=== PATIENT | male | born 1960 | race Caucasian/White ===

== ENCOUNTER 2022-11-06 11:43 | Inpatient (IN) | payer OTHER, SELFPAY ==
[2022-11-06] VITALS (12 sets, daily range): BP systolic 100–135; BP diastolic 64–94; PULSE 102–114; RESP 18–22; TEMP 36.8; O2SAT 96–99; BMI 27.9; BMI 27.7
--- NOTE | 2022-11-06 12:16 | CRLHL7_ITS ---
For Patients: As a result of the Century Cures Act, medical imaging exams and procedure reports are released immediately into your electronic medical record. You may view this report before your referring provider. If you have questions, please contact your health care provider. INDICATION: Lower abdominal pain TECHNIQUE: Axial images were obtained from the diaphragm to the pubic symphysis. Reformats were obtained in the coronal and sagittal plane. IV Contrast: 98 cc Isovue 370 Oral Contrast: None COMPARISON: None. FINDINGS: Lower chest: Unremarkable. Liver: Normal in contour with diffusely decreased density. Cysts within the right and left lobe of the liver. Gallbladder and bile ducts: Cholelithiasis without gallbladder wall thickening or pericholecystic inflammation. Spleen: Unremarkable. Normal in size without mass. Pancreas: Unremarkable. No mass or inflammation. Adrenal glands: Unremarkable. No nodules. Kidneys: Symmetric enhancement with a cyst the upper pole of left kidney. Subcentimeter hypodense lesions in the right kidney which are too small for characterization. Vasculature: Unremarkable. GI tract: The stomach is unremarkable. Colonic diverticulosis with wall thickening of the sigmoid colon, small adjacent free fluid as well as pneumoperitoneum within the sigmoid mesentery. Pelvis: Unremarkable. Bones: Old compression fracture T12. IMPRESSION: 1. Acute diverticulitis mid sigmoid colon with perforation. Small free fluid as well as pneumoperitoneum in the sigmoid mesentery without a drainable abscess. 2. Moderate hepatic steatosis. 3. Cholelithiasis without CT evidence of cholecystitis. Please note that all CT scans at this facility use dose modulation, iterative reconstruction, and/or weight-based dosing when appropriate to reduce radiation dose to as low as reasonably achievable. Dictated by Buddy León MD @ 11/06/2022 2:48:46 PM (Electronically Signed)
[2022-11-06] MEDS: KETOROLAC 30 MG/ML inj IVP (13:05)
[2022-11-06] MEDS: LORazepam 2 MG/ML inj 1 MG IVP (13:12)
[2022-11-06] MEDS: 0.9 % SODIUM CHLORIDE 1000 ml 1,000 ML IV (13:12)
[2022-11-06 13:19] LABS: Basophils Percent Auto 0.2 % (0.0-3.0); Eosinophils Percent Auto 0.2 % (0.0-7.0); Hematocrit 46.3 % (37.0-53.0); Immature Granulocytes Pct Auto 0.2 %; Lymphocytes Percent Auto 7.1 % (20-44); Mean Corpuscular HGB Conc 35 gm/dL (32-36); Mean Corpuscular Hemoglobin 29 pg (26-34); Mean Corpuscular Volume 83 fL (80-100); Monocytes Percent Auto 7.1 % (0.0-11.0); Neutrophils Percent Auto 85.2 % (42.0-72.0); Platelet Count* 197 K/uL (140-440); RDW Coefficient of Variation % 13.1 % (11.5-15.5); Red Blood Count 5.57 m/uL (4.30-5.90); White Blood Count* 13.04 K/uL (4.50-11.00)
--- NOTE | 2022-11-06 13:22 | ED_ITS ---
HPI - Abdominal Pain General Chief Complaint: Abdominal Pain Stated Complaint: lower abdominal pain Time Seen by Provider: 11/06/22 12:09 History of Present Illness HPI narrative: Pt is a 62 year old gentleman with a history of perirectal abscess who presents with a 12 hour history of lower abd pain. The pain seems to start in the RLQ but extends to the left. Pt has been having mucusy stool. No nausea, vomiting, fever or chills. Pt states that the pain is sharp but does not extend posteriorly. No change in his diet. No change in symptoms with urination or bowel movements. Pt takes 1000 mg of aspirin daily. No change recently. Pt otherwise has been in his usual state of health. Related Data Home Medications Medication Instructions Recorded Confirmed No Known Home Medications 11/06/22 11/06/22 Allergies Allergy/AdvReac Type Severity Reaction Status Date / Time No Known Drug Allergies Allergy Verified 11/06/22 11:53 Review of Systems Status of ROS Reports: 10 or more systems reviewed and unremarkable except as noted in History and below [facility] Medical History (Updated 11/06/22 @ 15:10 by Abebe Brandt MD) Perirectal abscess Pyloric stenosis Surgical History (Updated 11/06/22 @ 15:04 by Abebe Brandt MD) H/O bilateral inguinal hernia repair Social History Smoking Status: Never smoker Do you use any of these nicotine containing products: None How often do you have a drink containing alcohol: monthly or less How many standard drinks containing alcohol do you have on a typical day: 1 or 2 How often do you have six or more drinks on one occasion: Never AUDIT-C Alcohol total score: 1 Non-prescribed substance use: denies use Exam Narrative: Exam Narrative: EXAM GENERAL: Patient appears comfortable and well. EYES: No scleral icterus. ENT: Tympanic membranes and oropharynx normal. THYROID: no thyroid nodules or thyromegaly. LYMPH: No supraclavicular or cervical lymphadenopathy. SKIN: Visible skin seen during exam normal or with benign process only. EXT: No dependent lower extremity pedal edema. HEART: Regular rate and rhythm with no murmurs, rubs, or gallops. LUNGS: Clear to auscultation bilaterally with no crackles or wheezes. ABD: Soft, non tender, non distended. Minimal tenderness in the lower abd particularly on the right. No rebound. Bowel sounds hypoactive. PSYCH: Good eye contact, speech is not pressured. Const: Vital Signs, click to edit/add: Vital Signs - 24 hr 11/06/22 11:49 11/06/22 13:29 11/06/22 13:19 Temperature 98.2 F Pulse Rate 109 H Pulse Rate [Right Pulse Oximeter] 109 H Respiratory Rate 18 Blood Pressure 118/87 Blood Pressure [Ri ght Upper Arm] 130/84 Pulse Oximetry 97 97 97 Oxygen Delivery Me thod Room Air 11/06/22 13:20 11/06/22 13:30 11/06/22 13:31 Temperature Pulse Rate 110 H 105 H 106 H Pulse Rate [Right Pulse Oximeter] Respiratory Rate Blood Pressure 123/75 Blood Pressure [Ri ght Upper Arm] Pulse Oximetry 97 97 99 Oxygen Delivery Me thod Course Course Hospital Course: Pt seen and examined. CT abd and pelvis ordered. CBC, CMP, Amylase, Lactate, Blood Cultures ordered. Reevaluation(s) Reevaluation #1: CT shows diveritculitis with perforation with fluid and a small amount of free air. Case discussed with surgery. Pt started on Ertapenum. Time: 15:05 Vital Signs Vital signs: Initial Vital Signs Temperature 98.2 F 11/06/22 11:49 Temperature Source Temporal Artery Scan 11/06/22 11:49 Pulse Rate 109 H 11/06/22 11:49 Respiratory Rate 18 11/06/22 11:49 Blood Pressure 130/84 11/06/22 11:49 Blood Pressure Mean 99 11/06/22 11:49 Blood Pressure Position Sitting 11/06/22 11:49 Pulse Oximetry 97 11/06/22 11:49 Oxygen Delivery Method 11/06/22 11:49 Vital Signs Temperature 98.2 F 11/06/22 11:49 Pulse Rate 109 H 11/06/22 11:49 Respiratory Rate 18 11/06/22 11:49 Blood Pressure 130/84 11/06/22 11:49 Pulse Oximetry 97 11/06/22 11:49 Oxygen Delivery Method 11/06/22 11:49 Temperature 98.2 F 11/06/22 11:49 Pulse Rate 106 H 11/06/22 13:31 Respiratory Rate 18 11/06/22 11:49 Blood Pressure 123/75 11/06/22 13:31 Pulse Oximetry 99 11/06/22 13:31 Oxygen Delivery Method 11/06/22 11:49 MDM - Abdominal Pain MDM Narrative Medical decision making narrative: Pt presents with abd pain of 12 hours duration. Pt's WBC elevated at 13. Pt mildy tachycardic. Pt given IV fluids. CT scan shows diverticulosis with perforation with air and fluid present. Discussed case with Surgery. Given Ertapenum. Admit for further evaluation. Differential Diagnosis Differential diagnosis: Likely abdominal pain, acute appendicitis, calculus of kidney, constipation, diverticulitis, gastroenteritis, pancreatitis and small bowel obstruction Lab Data Labs: Lab Results 11/06/22 11/06/22 11/06/22 Range/Units 13:10 13:10 13:10 WBC 13.04 H (4.50-11.00) K/uL RBC 5.57 (4.30-5.90) m/uL Hgb 16.0 (13.5-17.5) gm/dL Hct 46.3 (37.0-53.0) % MCV 83 (80-100) fL MCH 29 (26-34) pg MCHC 35 (32-36) gm/dL RDW Coeff of Nichole 13.1 (11.5-15.5) % Plt Count 197 (140-440) K/uL Neut % (Auto) 85.2 H (42.0-72.0) % Lymph % (Auto) 7.1 L (20-44) % Bee % (Auto) 7.1 (0.0-11.0) % Eos % (Auto) 0.2 (0.0-7.0) % Baso % (Auto) 0.2 (0.0-3.0) % Neut # (Auto) 11.10 H (1.7-7.0) K/uL Lymph # (Auto) 0.90 (0.90-2.90) K/uL Bee # (Auto) 0.90 (0.00-0.90) K/UL Eos # (Auto) 0.00 (0.00-0.50) K/uL Baso # (Auto) 0.00 (0.00-0.30) K/uL Sodium 138 (135-149) mmol/L Potassium 4.1 (3.6-5.1) mmol/L Chloride 101 (96-114) mmol/L Carbon Dioxide 30 (20-32) mmol/L BUN 20 (7-30) mg/dL Creatinine 1.0 (0.5-1.5) mg/dL Estimated Creat Clear 82.62 Estimated GFR 86 ml/min Glucose 117 H (60-115) mg/dL Lactate 1.0 (0.5-1.9) mmol/L Calcium 9.0 (8.4-10.6) mg/dL Total Bilirubin 1.5 (0.1-1.5) mg/dL AST 44 H (12-35) U/L ALT 35 (4-50) U/L Alkaline Phosphatase 63 (40-150) U/L Total Protein 8.0 (6.0-8.3) g/dL Albumin 4.6 (3.3-5.0) g/dL Amylase 65 (18-89) U/L Urine Color (Yellow) Urine Appearance (Clear) Urine pH (5.0-8.5) Ur Specific [place] (1.000-1.030) Urine Protein (Negative) Urine Glucose (UA) (Negative) Urine Ketones (Negative) Urine Blood (Negative) Urine Nitrite (Negative) Urine Bilirubin (Negative) Urine Urobilinogen (0.2-1.0) Ur Leukocyte Esterase (Negative) Urine RBC (0-2) Urine WBC (0-5) Ur Squamous Epith Cells (None-Few) Urine Bacteria (None) Urine Mucus (None) 11/06/22 Range/Units 14:20 WBC (4.50-11.00) K/uL RBC (4.30-5.90) m/uL Hgb (13.5-17.5) gm/dL Hct (37.0-53.0) % MCV (80-100) fL MCH (26-34) pg MCHC (32-36) gm/dL RDW Coeff of Nichole (11.5-15.5) % Plt Count (140-440) K/uL Neut % (Auto) (42.0-72.0) % Lymph % (Auto) (20-44) % Bee % (Auto) (0.0-11.0) % Eos % (Auto) (0.0-7.0) % Baso % (Auto) (0.0-3.0) % Neut # (Auto) (1.7-7.0) K/uL Lymph # (Auto) (0.90-2.90) K/uL Bee # (Auto) (0.00-0.90) K/UL Eos # (Auto) (0.00-0.50) K/uL Baso # (Auto) (0.00-0.30) K/uL Sodium (135-149) mmol/L Potassium (3.6-5.1) mmol/L Chloride (96-114) mmol/L Carbon Dioxide (20-32) mmol/L BUN (7-30) mg/dL Creatinine (0.5-1.5) mg/dL Estimated Creat Clear Estimated GFR ml/min Glucose (60-115) mg/dL Lactate (0.5-1.9) mmol/L Calcium (8.4-10.6) mg/dL Total Bilirubin (0.1-1.5) mg/dL AST (12-35) U/L ALT (4-50) U/L Alkaline Phosphatase (40-150) U/L Total Protein (6.0-8.3) g/dL Albumin (3.3-5.0) g/dL Amylase (18-89) U/L Urine Color Dark yellow (Yellow) Urine Appearance Clear (Clear) Urine pH 6.0 (5.0-8.5) Ur Specific [place] 1.025 (1.000-1.030) Urine Protein Trace A (Negative) Urine Glucose (UA) Negative (Negative) Urine Ketones Negative (Negative) Urine Blood Negative (Negative) Urine Nitrite Negative (Negative) Urine Bilirubin Negative (Negative) Urine Urobilinogen 0.2 (0.2-1.0) Ur Leukocyte Esterase Negative (Negative) Urine RBC 0-2 (0-2) Urine WBC 0-2 (0-5) Ur Squamous Epith Cells Few (None-Few) Urine Bacteria Few A (None) Urine Mucus Moderate A (None) Discharge Plan Discharge Clinical Impression: Diverticulitis Patient Disposition: Admitted As Inpatient Condition: Stable Activity Level: Other Discharge Diet: Other Prescriptions: No Action No Known Home Medications Follow Up/Referrals: Dylon Jaimes MD [Primary Care Provider] -
[2022-11-06 13:37] LABS: Chloride* 101 mmol/L (96-114)
[2022-11-06 13:38] LABS: Albumin* 4.6 g/dL (3.3-5.0); Potassium* 4.1 mmol/L (3.6-5.1); Slide Review Reflex No; Sodium* 138 mmol/L (135-149)
[2022-11-06 13:40] LABS: Amylase* 65 U/L (18-89)
[2022-11-06 13:41] LABS: Alanine Aminotransferase* 35 U/L (4-50); Alkaline Phosphatase* 63 U/L (40-150); Aspartate Amino Transferase* 44 U/L (12-35); Bilirubin Total* 1.5 mg/dL (0.1-1.5); Blood Urea Nitrogen* 20 mg/dL (7-30); Carbon Dioxide* 30 mmol/L (20-32); Est. Creatinine Clearance* 82.62; Estimated Glomerular Filt Rate 86 ml/min; Glucose* 117 mg/dL (60-115)
[2022-11-06 14:37] LABS: Appearance Urine Clear (Clear); Bilirubin Urine Negative (Negative); Blood Urine Negative (Negative); Color Urine Dark yellow (Yellow); Glucose Urine Negative (Negative); Ketones Urine Negative (Negative); Leukocyte Esterase Urine Negative (Negative); Nitrite Urine Negative (Negative); Protein Urine Trace (Negative); Specific Gravity Urine 1.025 (1.000-1.030); Urobilinogen Urine 0.2 (0.2-1.0)
[2022-11-06 14:45] LABS: RBC Urine 0-2 (0-2); WBC Urine 0-2 (0-5)
[2022-11-06 14:46] LABS: Bacteria Urine Few; Squamous Epithelial Cell Urine Few (None-Few)
[2022-11-06 14:47] LABS: Mucus Urine Moderate
[2022-11-06] MEDS: ERTAPENEM 1 GM in 0.9 % SODIUM CHLORIDE Mini-bag 100 ML IVPB (15:12)
[2022-11-06 16:01] LABS: Lactate* 1.5 mmol/L (0.5-1.9)
[2022-11-06 16:08] LABS: SARS PCR* Negative SARS-CoV-2 (Negative)
[2022-11-06] MEDS: SODIUM CHLORIDE 0.9 % (FLUSH) 10 ML SYRINGE 5 ML IVF (17:16)
[2022-11-06] MEDS: 0.9 % SODIUM CHLORIDE 1000 ml 1,000 ML 125 ML IV (17:16)
[2022-11-06] MEDS: LACTATED RINGERS 1000 ML 1,000 ML 500 ML IV (17:16)
--- NOTE | 2022-11-06 17:20 | P.IMHP_ITS ---
Hospitalist- H&P: HPI History of Present Illness Time Seen by Provider: 15:00 Date Seen: 11/06/22 Chief complaint: lower abdominal pain Narrative: Duarte Carrillo is a 62 year old man who presents with a 24 hour history of suprapubic abdominal pain that is worsening. He was in his usual state of health up until about 1:00 PM yesterday. He ate a regular lunch. Subsequently developed suprapubic abdominal pain radiating to the left. Did not get better. Later in the evening developed low-grade fever and chills. [place] like he had to have a bowel movement but only eliminated gas and mucus. No blood of any kind. Denies nausea vomiting. Problem not improvi ng today and thus he comes into the emergency department further assessment. Review of Systems Status of ROS: Reports: 10 or more systems reviewed and unremarkable except as noted in History and below Narrative: Maximum temperature at home 99? F. He has had chills. Has not had an infectious illness for upwards of over a year, when he had about of his chronic prostatitis for which he was on a course of doxycycline. No recent exposure to COVID-19, influenza, RSV. Has not had any diarrhea. No recent travel, or trauma. No chest heaviness, pressure, tightness, or pain. Denies dyspnea at rest, paroxysmal nocturnal dyspnea, orthopnea. Denies syncope or near-syncope. No palpitations or chest fluttering. No edema. Has chronic dyspepsia for which he takes [id number] famotidine. Again has had no nausea vomiting. Last meal was around noon yesterday. Last drink chicken broth this morning. Denies myalgias, arthralgias, weight gain, weight loss. Has never been told he has diverticulosis in the past. He tells me that for the last 2 years his bowel habits have changed. Typically every morning he will have 3 bowel movements, 1st at home, and then at work. Sometimes he struggles to get to work and time before he has a 2nd bowel movement. . Lives with his . 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 Designates his , Annette, as his power of mergers and acquisitions attorney for health should that be required. Annette's cell phone number is [phone]. Patient requests full resuscitation in the event of cardiopulmonary demise. [facility] Medical History (Updated 11/06/22 @ 17:35 by Jose Bedolla MD) Anxiety Aspirin long-term use Benign prostatic hyperplasia with lower urinary tract symptoms Chronic headache disorder Chronic prostatitis/chronic pelvic pain syndrome Dyspepsia Perirectal abscess Pyloric stenosis Surgical History H/O bilateral inguinal hernia repair H/O vasectomy Family History Father Prostate cancer High blood pressure Uncle Diabetes Mother Stroke Social History Highest level of school completed/degree received: high school graduate Smoking Status: Never smoker Do you use any of these nicotine containing products: None How often do you have a drink containing alcohol: monthly or less How many standard drinks containing alcohol do you have on a typical day: 1 or 2 How often do you have six or more drinks on one occasion: Never AUDIT-C Alcohol total score: 1 Non-prescribed substance use: denies use Caffeine: Yes (1 Coke Daily.) service: No Meds Home Medications and Allergies Home Medications Medication Instructions Recorded Confirmed Type aspirin-caffeine 500 mg-32.5 mg 2 tab PO DAILY 11/06/22 11/06/22 History tablet (Back and Body Pain Reliever) cholecalciferol (vitamin D3) .ROUTE 11/06/22 History cyclobenzaprine 10 mg tablet 10 mg PO TID PRN 11/06/22 11/06/22 History doxycycline hyclate 100 mg tablet 100 mg PO BID PRN 11/06/22 11/06/22 History famotidine 20 mg tablet 20 mg PO DAILY 11/06/22 11/06/22 History (Zantac-360 (famotidine)) hydroxyzine pamoate 25 mg capsule 25 mg PO Q6H PRN 11/06/22 11/06/22 History levofloxacin 500 mg tablet 500 mg PO DAILY PRN 11/06/22 11/06/22 History lorazepam 1 mg tablet (Ativan) 1 mg PO DAILY PRN anxiety 11/06/22 11/06/22 History multivitamin (Daily Multi-Vitamin 1 tab PO DAILY 11/06/22 11/06/22 History tablet) tadalafil 20 mg tablet 20 mg PO DIRECTED PRN 11/06/22 11/06/22 History Allergies Allergy/AdvReac Type Severity Reaction Status Date / Time No Known Drug Allergies Allergy Verified 11/06/22 11:53 Exam Narrative: Exam Narrative: Appears uncomfortable. Nevertheless his articulate cooperative and friendly. Alert, oriented to self, place, time, situation. Anxious disposition. Mood and affect are congruent. Hearing and vision are grossly normal. Dry buccal mucosa. Dentition in good repair. Normal oral aperture. Supple neck. Midline trachea. Normal thyroid. No JVD, hepatojugular reflux, or carotid bruits. No lymphadenopathy in the pre or postauricular chains, anterior-posterior cervical chains, supra or infraclavicular fossa, submandibular or submental fossa, or axilla bilaterally. Lungs are clear to auscultation without wheezing, rhonchi, or rales. Heart tones with regular rhythm, normal S1-S2, tachycardic at around 105, no murmur, gallop, or rub. Abdomen with active bowel sounds. Subjective discomfort to palpation particularly in the suprapubic area but on the left and right as well. No peritoneal signs at this time. No CVA tenderness. Independent transfer, station, and gait. No tremor, asterixis, or ataxia. Skin is warm, dry, intact. No cyanosis, petechiae, or rashes. Const: Vital Signs, click to edit/add: Vital Signs - 24 hr 11/06/22 11:49 11/06/22 13:29 11/06/22 13:19 Temperature 98.2 F Pulse Rate 109 H Pulse Rate [Right Pulse Oximeter] 109 H Respiratory Rate 18 Blood Pressure 118/87 Blood Pressure [Ri ght Arm] Blood Pressure [Ri ght Upper Arm] 130/84 Pulse Oximetry 97 97 97 Oxygen Delivery Me thod Room Air 11/06/22 13:20 11/06/22 13:30 11/06/22 13:31 Temperature Pulse Rate 110 H 105 H 106 H Pulse Rate [Right Pulse Oximeter] Respiratory Rate Blood Pressure 123/75 Blood Pressure [Ri ght Arm] Blood Pressure [Ri ght Upper Arm] Pulse Oximetry 97 97 99 Oxygen Delivery Me thod 11/06/22 13:32 11/06/22 15:01 11/06/22 15:02 Temperature Pulse Rate 105 H 109 H Pulse Rate [Right Pulse Oximeter] Respiratory Rate Blood Pressure 135/94 H Blood Pressure [Ri ght Arm] Blood Pressure [Ri ght Upper Arm] Pulse Oximetry 96 98 Oxygen Delivery Me thod 11/06/22 16:55 Temperature 98.2 F Pulse Rate Pulse Rate [Right Pulse Oximeter] 102 H Respiratory Rate 22 Blood Pressure Blood Pressure [Ri ght Arm] 100/64 Blood Pressure [Ri ght Upper Arm] Pulse Oximetry 98 Oxygen Delivery Me thod Room Air Documenting provider has reviewed patient's vital signs: yes Hospitalist - H&P: Result Labs Labs: Short CBC 11/06/22 Range/Units 13:10 WBC 13.04 H (4.50-11.00) K/uL Hgb 16.0 (13.5-17.5) gm/dL Hct 46.3 (37.0-53.0) % Plt Count 197 (140-440) K/uL BMP 11/06/22 13:10 Sodium 138 Potassium 4.1 Chloride 101 Carbon Dioxide 30 BUN 20 Creatinine 1.0 Glucose 117 H Calcium 9.0 Liver Function 11/06/22 Range/Units 13:10 Total Bilirubin 1.5 (0.1-1.5) mg/dL AST 44 H (12-35) U/L ALT 35 (4-50) U/L Alkaline Phosphatase 63 (40-150) U/L Albumin 4.6 (3.3-5.0) g/dL Urine 11/06/22 Range/Units 14:20 Urine Color Dark yellow (Yellow) Urine Appearance Clear (Clear) Urine pH 6.0 (5.0-8.5) Ur Specific [place] 1.025 (1.000-1.030) Urine Protein Trace A (Negative) Urine Glucose (UA) Negative (Negative) Imaging CT scan - abdomen: Attestation: I have reviewed the pertinent imaging results. Radiologist's impression: Acute diverticulitis of the mid sigmoid with perforation. Small free fluid as well as pneumoperitoneum in the sigmoid mesentery without any drainable abscess. Also noted is moderate hepatic steatosis. Lastly patient has cholelithiasis without CT evidence of cholecystitis. Assessment and Plan Assessment and plan (1) Perforation of sigmoid colon due to diverticulitis: Problem comment: Micro perforation and pneumoperitoneum 11/06/2022. Ertapenem 1 g IV daily started on 11/06/2022. Status: Acute (2) Dehydration: Status: Acute (3) Tachycardia: Status: Acute (4) Aspirin long-term use: Problem comment: 1000 mg daily for chronic headache Status: Acute (5) Dyspepsia: Problem comment: Famotidine 20 mg once daily Status: Acute Plan 1. Reviewed impression with patient and . 2. Answered their questions. 3. Consulted with General surgery, Dr. White. Will ask her to follow with us in the event patient requires emergent surgery. 4. NPO, IV fluids, analgesics, antiemetics, ertapenem 1 g IV once daily. 5. Usual duration of antibiotic therapy is 10-14 days of IV plus oral ant ibiotics. Given that patient has micro per may need to consider IV antibiotics for duration of antibiotic therapy. 6. Will consult with Nutrition to review with patient low residue diet which we hope to initiate in the next few days depending on how he is doing. 7. Will curtail the use of aspirin therapy while in hospital. 8. Continue with other supportive medications. 9. Venous thromboembolism prophylaxis including ambulation as tolerated. 10. Patient and agreeable to above stated plans and recommendations.
--- NOTE | 2022-11-06 17:35 | PC.NURSE ---
PATIENT TO FLOOR FROM ED AROUND 1645, ALERT AND ORIENTED, APPEARS VERY ANXIOUS, PATIENT IS RESTLESS IN BED, RAMBLING SPEECH AND REPETITIVE QUESTIONS, BOWEL SOUNDS HYPOACTIVE, EDUCATED ON NPO DIET AND PATIENT VERBALIZED UNDERSTANDING, STATED ABDOMEN PAIN IS TOLERABLE AT THE MOMENT, WOULD NOT RATE PAIN ON NUMBER SCALE, PATIENT WANTING TO FILL OUT BELONGING FORM AND INFORMATION AUTHORIZATION FROM.
[2022-11-06] MEDS: ACETAMINOPHEN 325 MG TABLET 650 MG PO (22:25)
[2022-11-06] MEDS: diphenhydrAMINE 25 MG CAPSULE PO (22:26)
[2022-11-06] MEDS: MELATONIN 3 MG TABLET 9 MG PO (22:26)
[2022-11-07] MEDS: 0.9 % SODIUM CHLORIDE 1000 ml 1,000 ML 125 ML IV ×3 (02:08→20:23)
[2022-11-07 03:00] VITALS: BP 108/67; PULSE 89; TEMP 36.6
[2022-11-07 04:25] VITALS: BP 108/67; PULSE 89; RESP 22; TEMP 36.6; O2SAT 98
[2022-11-07 06:53] LABS: Lactate* 0.8 mmol/L (0.5-1.9)
[2022-11-07 07:01] LABS: Basophils Absolute Auto 0.03 K/uL (0.00-0.30); Basophils Percent Auto 0.3 % (0.0-3.0); Eosinophils Absolute Auto 0.03 K/uL (0.00-0.50); Eosinophils Percent Auto 0.3 % (0.0-7.0); Hematocrit 39.1 % (37.0-53.0); Hemoglobin* 13.2 gm/dL (13.5-17.5); Immature Granulocytes Abs Auto 0.01 K/uL (0.00-0.30); Immature Granulocytes Pct Auto 0.1 %; Lymphocytes Percent Auto 9.3 % (20-44); Mean Corpuscular HGB Conc 34 gm/dL (32-36); Mean Corpuscular Hemoglobin 28 pg (26-34); Mean Corpuscular Volume 84 fL (80-100); Monocytes Percent Auto 7.4 % (0.0-11.0); Neutrophils Percent Auto 82.6 % (42.0-72.0); Platelet Count* 169 K/uL (140-440); RDW Coefficient of Variation % 12.9 % (11.5-15.5); Red Blood Count 4.67 m/uL (4.30-5.90); White Blood Count* 9.67 K/uL (4.50-11.00)
[2022-11-07 07:12] LABS: Slide Review Reflex No
[2022-11-07 07:24] LABS: Chloride* 106 mmol/L (96-114); Sodium* 136 mmol/L (135-149)
[2022-11-07 07:26] LABS: Creatinine* 0.9 mg/dL (0.5-1.5); Est. Creatinine Clearance* 82.62; Estimated Glomerular Filt Rate 97 ml/min; Lipase* 62 U/L (23-300)
[2022-11-07 07:27] LABS: Blood Urea Nitrogen* 21 mg/dL (7-30); Carbon Dioxide* 25 mmol/L (20-32); Glucose* 111 mg/dL (60-115); Phosphorus* 2.7 mg/dL (2.5-4.5)
[2022-11-07 07:28] LABS: Magnesium* 1.9 mg/dL (1.5-2.6)
[2022-11-07 07:30] VITALS: BP 107/72; PULSE 93; RESP 18; TEMP 36.8; O2SAT 97
--- NOTE | 2022-11-07 07:42 | PC.NURSE ---
VSS on RA. Patient is alert and oriented x 3, able to make needs known to staff using call light. IV fluid running @ 125ml/hr and tolerating well. Independent with transfers, continent of bowel and bladder. Pt appears stable, call light with in reach.
[2022-11-07 07:44] LABS: C Reactive Protein* 18.5 mg/dL (0.5-1.0); Troponin I* < 0.01 ng/mL (0.01-0.04)
--- NOTE | 2022-11-07 08:15 | PM.GSCN ---
History of Present Illness Consult details Date Seen: 11/07/22 Consult date: 11/07/22 Narrative: 62-year-old male was admitted to the hospital with perforated diverticulitis and I was asked by Dr. Madsen to see him in consultation. Patient states that on Thursday after lunch she developed crampy pain in bilateral lower quadrants. The pain was described as coming ?in waves? every 20 minutes. The pain was getting severe and he did not go to work on . He was passing gas intermittently and denied nausea or vomiting. The pain was getting significantly worse and yesterday he presented to the emergency room. Patient denies any prior episodes of pain. He had a colonoscopy 4 years ago with a 5 year repeat. In the emergency room he was found to have an elevated WBC of 13. An abdominal CT was obtained that showed sigmoid diverticulitis in the mid sigmoid colon with extraluminal air pocket adjacent to the inflamed sigmoid colon. There was no abdominal free air and the free air noted adjacent to the sigmoid colon appeared to be contained. Patient was admitted for IV hydration and IV antibiotics. He states that his abdominal pain is significantly better compared to yesterday. Review of Systems Narrative: General: no fevers HENT: no problems swallowing CV: no shortness of breath Resp: no cough GI: See above Skin: no new rashes Musculoskeletal: no back pain Neuro: no muscle weakness [facility] Medical History (Updated 11/06/22 @ 17:35 by Jose Bedolla MD) Anxiety Aspirin long-term use Benign prostatic hyperplasia with lower urinary tract symptoms Chronic headache disorder Chronic prostatitis/chronic pelvic pain syndrome Dyspepsia Perirectal abscess Pyloric stenosis Surgical History H/O bilateral inguinal hernia repair H/O vasectomy Family History Father Prostate cancer High blood pressure Uncle Diabetes Mother Stroke Social History Highest level of school completed/degree received: high school graduate Smoking Status: Never smoker Do you use any of these nicotine containing products: None How often do you have a drink containing alcohol: monthly or less How many standard drinks containing alcohol do you have on a typical day: 1 or 2 How often do you have six or more drinks on one occasion: Never AUDIT-C Alcohol total score: 1 Non-prescribed substance use: denies use Caffeine: Yes (1 Coke Daily.) service: No Meds Home Medications and Allergies Home Medications Medication Instructions Recorded Confirmed Type aspirin-caffeine 500 mg-32.5 mg 2 tab PO DAILY 11/06/22 11/06/22 History tablet (Back and Body Pain Reliever) cholecalciferol (vitamin D3) .ROUTE 11/06/22 History cyclobenzaprine 10 mg tablet 10 mg PO TID PRN 11/06/22 11/06/22 History doxycycline hyclate 100 mg tablet 100 mg PO BID PRN 11/06/22 11/06/22 History famotidine 20 mg tablet 20 mg PO DAILY 11/06/22 11/06/22 History (Zantac-360 (famotidine)) hydroxyzine pamoate 25 mg capsule 25 mg PO Q6H PRN 11/06/22 11/06/22 History levofloxacin 500 mg tablet 500 mg PO DAILY PRN 11/06/22 11/06/22 History lorazepam 1 mg tablet (Ativan) 1 mg PO DAILY PRN anxiety 11/06/22 11/06/22 History multivitamin (Daily Multi-Vitamin 1 tab PO DAILY 11/06/22 11/06/22 History tablet) tadalafil 20 mg tablet 20 mg PO DIRECTED PRN 11/06/22 11/06/22 History Allergies Allergy/AdvReac Type Severity Reaction Status Date / Time No Known Drug Allergies Allergy Verified 11/06/22 11:53 Exam Narrative: Exam Narrative: General appearance: Alert, cooperative, and in no distress Pulmonary: Chest symmetric, lungs clear bilaterally Cardiovascular Heart: Regular rate and rhythm, S1, S2, no murmurs/rubs/gallops Gastrointestinal Abdominal: soft, not distended, tender to palpation in bilateral lower quadrants and suprapubically with minimal rebound tenderness suprapubically but no other peritoneal signs. Not tender to palpation in epigastrium. Skin: Normal skin color, texture, and turgor. No rashes or lesions. Psychiatric: Alert, cooperative, normal affect. Const: Vital Signs, click to edit/add: Vital Signs - 24 hr 11/06/22 11:49 11/06/22 13:29 11/06/22 13:19 Temperature 98.2 F Pulse Rate 109 H Pulse Rate [Right Pulse Oximeter] 109 H Respiratory Rate 18 Blood Pressure 118/87 Blood Pressure [Ri ght Arm] Blood Pressure [Ri ght Upper Arm] 130/84 Pulse Oximetry 97 97 97 Oxygen Delivery Me thod Room Air 11/06/22 13:20 11/06/22 13:30 11/06/22 13:31 Temperature Pulse Rate 110 H 105 H 106 H Pulse Rate [Right Pulse Oximeter] Respiratory Rate Blood Pressure 123/75 Blood Pressure [Ri ght Arm] Blood Pressure [Ri ght Upper Arm] Pulse Oximetry 97 97 99 Oxygen Delivery Me thod 11/06/22 13:32 11/06/22 15:01 11/06/22 15:02 Temperature Pulse Rate 105 H 109 H Pulse Rate [Right Pulse Oximeter] Respiratory Rate Blood Pressure 135/94 H Blood Pressure [Ri ght Arm] Blood Pressure [Ri ght Upper Arm] Pulse Oximetry 96 98 Oxygen Delivery Me thod 11/06/22 16:55 11/06/22 20:54 11/06/22 23:00 Temperature 98.2 F 98.2 F Pulse Rate Pulse Rate [Right Pulse Oximeter] 102 H 114 H 114 H Respiratory Rate 22 22 22 Blood Pressure Blood Pressure [Ri ght Arm] 100/64 114/69 Blood Pressure [Ri ght Upper Arm] Pulse Oximetry 98 98 [facility] 11/07/22 03:00 11/07/22 04:25 Temperature 97.9 F 97.9 F Pulse Rate Pulse Rate [Right Pulse Oximeter] 89 89 Respiratory Rate 22 Blood Pressure Blood Pressure [Ri ght Arm] 108/67 108/67 Blood Pressure [Ri ght Upper Arm] Pulse Oximetry 98 Oxygen Delivery Il thod Room Air Results Labs Labs: Abnormal lab results 11/06/22 11/06/22 11/06/22 Range/Units 13:10 13:10 14:20 WBC 13.04 H (4.50-11.00) K/uL Hgb (13.5-17.5) gm/dL Neut % (Auto) 85.2 H (42.0-72.0) % Lymph % (Auto) 7.1 L (20-44) % Neut # (Auto) 11.10 H (1.7-7.0) K/uL Glucose 117 H (60-115) mg/dL Calcium (8.4-10.6) mg/dL AST 44 H (12-35) U/L Troponin I (0.01-0.04) ng/mL C-Reactive Protein (0.5-1.0) mg/dL Urine Protein Trace A (Negative) Urine Bacteria Few A (None) Urine Mucus Moderate A (None) 11/07/22 11/07/22 Range/Units 06:11 06:11 WBC (4.50-11.00) K/uL Hgb 13.2 L (13.5-17.5) gm/dL Neut % (Auto) 82.6 H (42.0-72.0) % Lymph % (Auto) 9.3 L (20-44) % Neut # (Auto) 8.00 H (1.7-7.0) K/uL Glucose (60-115) mg/dL Calcium 8.0 L (8.4-10.6) mg/dL AST (12-35) U/L Troponin I < 0.01 L (0.01-0.04) ng/mL C-Reactive Protein 18.5 H (0.5-1.0) mg/dL Urine Protein (Negative) Urine Bacteria (None) Urine Mucus (None) Diabetes panel 11/06/22 11/07/22 Range/Units 13:10 06:11 Sodium 138 136 (135-149) mmol/L Potassium 4.1 4.0 (3.6-5.1) mmol/L Chloride 101 106 (96-114) mmol/L Carbon Dioxide 30 25 (20-32) mmol/L BUN 20 21 (7-30) mg/dL Creatinine 1.0 0.9 (0.5-1.5) mg/dL Glucose 117 H 111 (60-115) mg/dL Calcium 9.0 8.0 L (8.4-10.6) mg/dL AST 44 H (12-35) U/L ALT 35 (4-50) U/L Alkaline Phosphatase 63 (40-150) U/L Total Protein 8.0 (6.0-8.3) g/dL Albumin 4.6 (3.3-5.0) g/dL Calcium panel 11/06/22 11/07/22 Range/Units 13:10 06:11 Calcium 9.0 8.0 L (8.4-10.6) mg/dL Phosphorus 2.7 (2.5-4.5) mg/dL Albumin 4.6 (3.3-5.0) g/dL Pituitary panel 11/06/22 11/07/22 Range/Units 13:10 06:11 Sodium 138 136 (135-149) mmol/L Potassium 4.1 4.0 (3.6-5.1) mmol/L Chloride 101 106 (96-114) mmol/L Carbon Dioxide 30 25 (20-32) mmol/L BUN 20 21 (7-30) mg/dL Creatinine 1.0 0.9 (0.5-1.5) mg/dL Glucose 117 H 111 (60-115) mg/dL Calcium 9.0 8.0 L (8.4-10.6) mg/dL Adrenal panel 11/06/22 11/07/22 Range/Units 13:10 06:11 Sodium 138 136 (135-149) mmol/L Potassium 4.1 4.0 (3.6-5.1) mmol/L Chloride 101 106 (96-114) mmol/L Carbon Dioxide 30 25 (20-32) mmol/L BUN 20 21 (7-30) mg/dL Creatinine 1.0 0.9 (0.5-1.5) mg/dL Glucose 117 H 111 (60-115) mg/dL Calcium 9.0 8.0 L (8.4-10.6) mg/dL Total Bilirubin 1.5 (0.1-1.5) mg/dL AST 44 H (12-35) U/L ALT 35 (4-50) U/L Alkaline Phosphatase 63 (40-150) U/L Total Protein 8.0 (6.0-8.3) g/dL Albumin 4.6 (3.3-5.0) g/dL All other labs normal. Assessment and Plan Assessment and plan (1) Perforation of sigmoid colon due to diverticulitis: Problem comment: Micro perforation and pneumoperitoneum 11/06/2022. Ertapenem 1 g IV daily started on 11/06/2022. Status: Acute Plan 62-year-old male presents with acute complicated sigmoid diverticulitis with microperforation. I discussed with the patient his laboratory and imaging findings. Patient's perforation appears to be contained. His abdominal exam is relatively benign. His pain is improving with IV antibiotics. Patient is passing gas indicating no colonic obstruction. I think it would be reasonable to give him clear liquid diet for the next couple days. I will discuss with the hospitalist possible discharge on outpatient IV ertapenem for 10 days.
--- NOTE | 2022-11-07 09:57 | NUTR.NU ---
RDN with MD consult for diverticulitis and need for diet education. RDN visited with patient whom agreed to diet education. Patient was provided diet education on a low fiber diet. Discussed foods to include and foods to avoid until MD recommends advancing to high fiber diet. Generally, it is recommended to follow low-fiber diet for 4-6 weeks, or per MD recommendations. Education also provided on gradually increasing fiber and following a high fiber diet (25-35 grams/day) long-term.? Verbal and written information as well as sample menus provided on both diets from AND [facility]. Patient verbalized understanding. RDN's contact information was provided and patient was encouraged to contact RDN with questions.
[2022-11-07 11:00] VITALS: BP 123/71; PULSE 85; RESP 18; TEMP 36.8; O2SAT 94
[2022-11-07] MEDS: ERTAPENEM 1 GM in 0.9 % SODIUM CHLORIDE Mini-bag 100 ML IVPB (13:07)
[2022-11-07 15:00] VITALS: BP 112/61; PULSE 62; RESP 18; TEMP 36.9; O2SAT 99
--- NOTE | 2022-11-07 18:30 | PM.IMPN1 ---
Progress Note: A&P Assessment and plan (1) Perforation of sigmoid colon due to diverticulitis: Problem details: Micro perforation and pneumoperitoneum 11/06/2022. Ertapenem 1 g IV daily started on 11/06/2022. Status: Acute Assessment and Plan: Stabilizing with current interventions. Appreciate support from her general surgeon, Dr. White. (2) Aspirin long-term use: Problem details: 1000 mg daily for chronic headache Status: Acute Assessment and Plan: Continue to hold aspirin for now. (3) Sepsis: Status: Acute Assessment and Plan: Much improved. (4) Bacteremia: Problem details: Gram-positive ella resembling bacillus species grew out on 11/07/2022 Status: Acute Assessment and Plan: Continue with ertapenem IV. Repeat blood cultures. Plan 1. Reviewed impression with patient and . Answered their questions their satisfaction. 2. Continue with plans as specified above. Increase activity as tolerated. Time Spent With Patient Total time spent: 30 minutes Subjective Time Seen by Provider: 14:00 Date Seen: 11/07/22 Interval history: Hospital day 2. Abdominal pain improving. Tolerating clear liquids. Nausea has resolved. Tolerating increased activities. Not feeling as weak, feeling a little stronger. Denies fevers, rigors, diaphoresis. Exam Narrative: Exam Narrative: Appears less uncomfortable. Does not appear as tired. Friendly, cooperative. No acute distress. Alert, oriented to self, place, time, situation. Not as anxious. Very interested in being discharged from the hospital when it is possible. Mood and affect are congruent. Lungs are clear to auscultation. Heart tones with regular rhythm. Abdomen with active bowel sounds, subjective discomfort to palpation, no rebound or guarding. Extremities without edema. Independent transfer, station and gait. No tremor, asterixis or ataxia. Skin is warm, dry, intact. No petechiae, rashes, or cyanosis. Const: Vital Signs, click to edit/add: Vital Signs - 24 hr 11/06/22 20:54 11/06/22 23:00 11/07/22 03:00 Temperature 98.2 F 97.9 F Pulse Rate [Right Pulse Oximeter] 114 H 114 H 89 Respiratory Rate 22 22 Blood Pressure [Ri ght Arm] 114/69 108/67 Pulse Oximetry 98 Oxygen Delivery Me thod Room Air 11/07/22 04:25 11/07/22 07:30 11/07/22 11:00 Temperature 97.9 F 98.2 F 98.2 F Pulse Rate [Right Pulse Oximeter] 89 93 85 Respiratory Rate 22 18 18 Blood Pressure [Ri ght Arm] 108/67 107/72 123/71 Pulse Oximetry 98 97 94 Oxygen Delivery Me thod Room Air Room Air Room Air Documenting provider has reviewed patient's vital signs: yes Labs Labs: Laboratory Results - last 24 hr 11/07/22 11/07/22 11/07/22 06:11 06:11 06:11 WBC 9.67 RBC 4.67 Hgb 13.2 L Hct 39.1 MCV 84 MCH 28 MCHC 34 RDW Coeff of Nichole 12.9 Plt Count 169 Neut % (Auto) 82.6 H Lymph % (Auto) 9.3 L Bowman % (Auto) 7.4 Eos % (Auto) 0.3 Baso % (Auto) 0.3 Neut # (Auto) 8.00 H Lymph # (Auto) 0.90 Bowman # (Auto) 0.70 Eos # (Auto) 0.03 Baso # (Auto) 0.03 Sodium 136 Potassium 4.0 Chloride 106 Carbon Dioxide 25 BUN 21 Creatinine 0.9 Estimated Creat Clear 82.62 Estimated GFR 97 Glucose 111 Lactate 0.8 Calcium 8.0 L Phosphorus 2.7 Magnesium 1.9 Troponin I < 0.01 L C-Reactive Protein 18.5 H Lipase 62
--- NOTE | 2022-11-07 18:39 | PC.NURSE ---
shift note: vss stable. pt up indept. pt denies pain. IV replaced due to infiltrate. BS hyperactive. Abdomen is still slightly distended. pt tolerating clears. Pt had 3 BM's.
[2022-11-07] MEDS: LACTOBACILLUS ACIDOPHILUS 1 TABLET 2 TAB PO (19:27)
[2022-11-07 20:15] LABS: Hematocrit 38.3 % (37.0-53.0); Mean Corpuscular HGB Conc 34 gm/dL (32-36); Mean Corpuscular Hemoglobin 28 pg (26-34); Mean Corpuscular Volume 84 fL (80-100); Platelet Count* 162 K/uL (140-440); Red Blood Count 4.58 m/uL (4.30-5.90); White Blood Count* 7.07 K/uL (4.50-11.00)
[2022-11-07 20:16] LABS: Slide Review Reflex No
[2022-11-07 20:40] LABS: C Reactive Protein* 18.1 mg/dL (0.5-1.0)
[2022-11-07 21:00] VITALS: BP 103/58; PULSE 79; RESP 20; TEMP 37.1; O2SAT 98
[2022-11-07] MEDS: diphenhydrAMINE 25 MG CAPSULE PO (21:14)
[2022-11-07] MEDS: MELATONIN 3 MG TABLET 9 MG PO (21:14)
[2022-11-07] MEDS: SODIUM CHLORIDE 0.9 % (FLUSH) 10 ML SYRINGE 5 ML IVF (21:14)
[2022-11-08 00:50] VITALS: BP 99/63; PULSE 74; RESP 18; TEMP 37.6; O2SAT 97
[2022-11-08 03:00] VITALS: RESP 18
--- NOTE | 2022-11-08 07:03 | PC.NURSE ---
END OF SHIFT NOTE: PT PLEASANT AND RELAXED. PT AMBULATES WITHIN ROOM INDEPENDENTLY. PT REFUSED TEDS AND SCD'S THROUGHOUT SHIFT. 0430 PT REFUSED NEW BAG OF 0.9% NS. WHEN NURSE EXPLAINED THERE WAS NO ORDER TO SL, PT STATED OK HANG IT. I WILL JUST CLAMP IT HERE. PT REPORTS BEING UP TO THE BATHROOM MULTIPLE TIMES NOC D/T ENLARGED PROSTATE. PT WAS LEFT HAND IV WAS SL. VSS ON RA; AFEBRILE.
[2022-11-08 07:12] LABS: Lactate* 0.7 mmol/L (0.5-1.9)
[2022-11-08 07:37] LABS: Chloride* 106 mmol/L (96-114); Sodium* 138 mmol/L (135-149)
[2022-11-08 07:40] LABS: Creatinine* 0.9 mg/dL (0.5-1.5); Est. Creatinine Clearance* 82.62; Estimated Glomerular Filt Rate 97 ml/min
[2022-11-08 07:41] LABS: Blood Urea Nitrogen* 13 mg/dL (7-30); Calcium* 8.3 mg/dL (8.4-10.6); Carbon Dioxide* 28 mmol/L (20-32); Glucose* 96 mg/dL (60-115)
[2022-11-08 08:11] VITALS: BP 139/90; PULSE 80; RESP 16; TEMP 36.8; O2SAT 96
[2022-11-08] MEDS: LACTOBACILLUS ACIDOPHILUS 1 TABLET 2 TAB PO ×2 (08:19→13:17)
[2022-11-08] MEDS: ACETAMINOPHEN 325 MG TABLET 650 MG PO (08:19)
[2022-11-08] MEDS: SODIUM CHLORIDE 0.9 % (FLUSH) 10 ML SYRINGE 5 ML IVF (08:19)
[2022-11-08 09:11] VITALS: BP 135/94; PULSE 109; RESP 18; TEMP 37.6
--- NOTE | 2022-11-08 09:58 | PM.GSPN ---
Subjective Subjective Date Seen: 11/08/22 Interval history: Patient's pain is improving. He denies any nausea vomiting. He tolerated clears yesterday. He had a bowel movement yesterday and was passing gas. Blood cultures came back positive yesterday. Exam Narrative: Exam Narrative: Abdomen is soft, not distended, minimally tender to palpation suprapubically and less tender in left lower quadrant, no rebound tenderness. Const: Vital Signs, click to edit/add: Vital Signs - 24 hr 11/07/22 11:00 11/07/22 15:00 11/07/22 15:00 Temperature 98.2 F 98.5 F Pulse Rate Pulse Rate [Right Pulse Oximeter] 85 62 62 Respiratory Rate 18 18 18 Blood Pressure Blood Pressure [Ri ght Arm] 123/71 112/61 Pulse Oximetry 94 99 Oxygen Delivery Me thod Room Air Room Air 11/07/22 21:00 11/08/22 00:50 11/08/22 00:50 Temperature 98.7 F 99.6 F Pulse Rate Pulse Rate [Right Pulse Oximeter] 79 74 74 Respiratory Rate 20 18 18 Blood Pressure Blood Pressure [Ri ght Arm] 103/58 L 99/63 Pulse Oximetry 98 97 Oxygen Delivery Me thod Room Air Room Air 11/08/22 03:00 11/08/22 09:11 Temperature 99.6 F Pulse Rate 109 H Pulse Rate [Right Pulse Oximeter] Respiratory Rate 18 18 Blood Pressure 135/94 H Blood Pressure [Ri ght Arm] Pulse Oximetry Oxygen Delivery Me thod Room Air Progress Note: A&P Assessment and plan (1) Bacteremia: Problem details: Gram-positive ella resembling bacillus species grew out on 11/07/2022 Status: Acute (2) Perforation of sigmoid colon due to diverticulitis: Problem details: Micro perforation and pneumoperitoneum 11/06/2022. Ertapenem 1 g IV daily started on 11/06/2022. Status: Acute Assessment and Plan: 62-year-old male admitted with acute complicated sigmoid diverticulitis treated with conservatively with IV antibiotics. Patient is recovering well. I recommended to continue outpatient IV antibiotics. Patient can advance his diet as tolerated. Okay to discharge.
--- NOTE | 2022-11-08 10:52 | P.DS_ITS ---
DS: Providers Provider Date Seen: 11/08/22 Date of admission: 11/06/22 16:53 Primary care physician: Dylon Jaimes MD Admitting Clinician: Jose Bedolla MD Consults: Nutrition, General Surgery Attending Physician on discharge: Shahnaz Ron MD Date of Discharge: 11/08/22 DS: Diagnosis Discharge Diagnosis (1) Perforation of sigmoid colon due to diverticulitis: Status: Acute Problem details: - Micro perforation and pneumoperitoneum noted on admission CT 11/06/2022 - Ertapenem 1 g IV daily started on 11/06/2022 (2) Bacteremia: Status: Acute Problem details: - Gram-positive carlos resembling bacillus species grew out on 11/07/2022 (collected 11/06): Per lab; appears to resemble skin contaminant - Sensitivities pending on day of discharge; patient has subjectively and objectively improved on ertapenem (3) Dehydration: Status: Acute Problem details: - resolved (4) Tachycardia: Status: Acute Problem details: - resolved DS: Summary Hospital Course Hospital Course: 62-year-old male, admitted to the hospital on 11/06 for abdominal pain diverticulitis with perforation and pneumoperitoneum on admission CT scan. He was followed by General surgery during stay, no operative interventions required. Patient improved clinically with IV fluids and Ertapenem, remained afebrile, tolerated slow diet advancement, and requested discharge home on hospital day 2. One of patient's admission blood cultures returned positive for G+ bacilli; repeat blood cultures negative and lab believes this to be a contaminant. Formal sensitivities pending upon discharge; patient will be returning to the hospital daily for IV ertapenem to complete 10 day course of therapy; will follow-up formal sensitivities during this time. Patient lives locally with ; understands strict return precautions and understands risk of discharging prior to formal ID and sensitivities of his positive blood culture. Status at Discharge Functional status at discharge: independent ambulation Overall status at discharge: patient is back to baseline Time Spent with Patient Time attestation: Total time spent providing and/or coordinating discharge services: Time spent: Greater than 30 minutes Specific discharge activities: Review of case with general surgery, discharge documentation, medication reconciliation, care coordination for IV antibiotic therapy as an outpatient Exam Narrative: Exam Narrative: GEN: Alert and oriented, sitting comfortably in bed answering questions appropriately. Nontoxic in appearance HEENT: Normal external ears, EOMIs bilaterally, no scleral icterus CV: RRR, No concerning murmurs, rubs, or gallops R: LCTA bilaterally without concerning wheezing, rales, or rhonchi, air movement adequate Ab: Soft, tolerates palpation. Hyperactive bowel sounds noted Ext: wwp, no concerning edema Skin: No concerning skin lesions or rashes on exposed skin Neuro: Nonfocal Psych: Appropriate Const: Vital Signs, click to edit/add: Vital Signs - 24 hr 11/07/22 11:00 11/07/22 15:00 11/07/22 15:00 Temperature 98.2 F 98.5 F Pulse Rate Pulse Rate [Right Pulse Oximeter] 85 62 62 Respiratory Rate 18 18 18 Blood Pressure Blood Pressure [Ri ght Arm] 123/71 112/61 Pulse Oximetry 94 99 Oxygen Delivery Me thod Room Air Room Air 11/07/22 21:00 11/08/22 00:50 11/08/22 00:50 Temperature 98.7 F 99.6 F Pulse Rate Pulse Rate [Right Pulse Oximeter] 79 74 74 Respiratory Rate 20 18 18 Blood Pressure Blood Pressure [Ri ght Arm] 103/58 L 99/63 Pulse Oximetry 98 97 Oxygen Delivery Me thod Room Air Room Air 11/08/22 03:00 11/08/22 09:11 Temperature 99.6 F Pulse Rate 109 H Pulse Rate [Right Pulse Oximeter] Respiratory Rate 18 18 Blood Pressure 135/94 H Blood Pressure [Ri ght Arm] Pulse Oximetry Oxygen Delivery Me thod Room Air DS: Data Data Completed and Pending Labs on day of discharge: Labs from last 24 hours 11/08/22 11/08/22 11/07/22 07:02 07:02 19:36 WBC RBC Hgb Hct MCV MCH MCHC Plt Count Sodium 138 Potassium 4.0 Chloride 106 Carbon Dioxide 28 BUN 13 Creatinine 0.9 Estimated Creat Clear 82.62 Estimated GFR 97 Glucose 96 Lactate 0.7 Calcium 8.3 L C-Reactive Protein 18.1 H 11/07/22 19:36 WBC 7.07 RBC 4.58 Hgb 13.0 L Hct 38.3 MCV 84 MCH 28 MCHC 34 Plt Count 162 Sodium Potassium Chloride Carbon Dioxide BUN Creatinine Estimated Creat Clear Estimated GFR Glucose Lactate Calcium C-Reactive Protein Preliminary micro results at discharge 11/06/22 15:43 Blood Culture - Preliminary Blood Gram Pos Carlos resem Bacillus sp 11/06/22 15:13 Blood Culture - Preliminary Blood NO GROWTH AFTER 24 HOURS Discharge Plan Discharge Disposition: Home, Self-Care Date of Admission: 11/06/22 16:53 Consulting Providers: Luigi White Primary Care Provider: Dylon Jaimes Condition: Stable Anticipated Discharge Date/Time: 11/08/22 14:00 Discharge Medications: New ertapenem 1 gram recon soln 1 g IV Q24H 7 Days Qty: 7 0RF Continued famotidine [Zantac-360 (famotidine)] 20 mg tablet 20 mg PO DAILY doxycycline hyclate 100 mg tablet 100 mg PO BID PRN Rx Instructions: TAKES NEEDED FOR PROSTATITIS FLARES tadalafil 20 mg tablet 20 mg PO DIRECTED PRN Label Comments: TAKE 1 TABLET BY MOUTH EVERY DAY 30 MINUTES BEFORE SEXUAL ACTIVITY NEEDED FOR ERECTILE DYSFUNCTION multivitamin [Daily Multi-Vitamin] Tablet 1 tab PO DAILY cholecalciferol (vitamin D3) .ROUTE lorazepam [Ativan] 1 mg tablet 1 mg PO DAILY PRN (Reason: anxiety) Rx Instructions: VERY RARE USAGE hydroxyzine pamoate 25 mg capsule 25 mg PO Q6H PRN cyclobenzaprine 10 mg tablet 10 mg PO TID PRN Held Back and Body Pain Reliever 500-32.5 mg tablet 2 tab PO DAILY Hold Instructions: Resume on 11/17/22. Please hold your high-dose aspirin while your on antibiotics. For pain: try Tylenol, 1000 mg every 8 hours, in addition to as needed cyclobenzaprine and hydroxyzine. You can consider restarting this after discussing with Dr. White and your PCP. Discontinued levofloxacin 500 mg tablet 500 mg PO DAILY PRN Rx Instructions: TAKES NEEDED FOR PROSTATITIS FLARES Discharge Orders: Discharge Order (Routine); Ordered 11/08/22 Ordered By: Shahnaz Ron Patient Education: Ertapenem (By injection), Diverticulitis Diet (DC) Additional Instructions: IV antibiotics once daily for 1 more week, to complete full 10 day course. If you have worsening pain, lightheadedness or dizziness, fevers, or any other c oncerns: Please return to the ER. See your PCP next week, Dr. White of General surgery in 1-2 weeks. Activity Level: No strenuous activity and Other Discharge Diet: Low Fiber and Other Diet Detail: Diverticulitis friendly Follow Up Appointments: Luigi White MD [Staff Physician] - 12/17/22 9:00 am (At the [facility] Location Please call if you have any questions.) Dylon Jaimes MD [Primary Care Provider] - 12/15/22 3:00 pm Forms: Clerts! Info Instructions
[2022-11-08] MEDS: ERTAPENEM 1 GM in 0.9 % SODIUM CHLORIDE Mini-bag 100 ML IVPB (13:17)
== END 2022-11-08 14:22 | disposition home or self-care (01) | DRG 392 ==
LOC: ED 15:10 → MEDSURG 16:53
PROVIDERS: Admitting Provider Internal Medicine; Emergency Provider Internal Medicine; PCP Family Medicine; Visit Provider Internal Medicine
DX: K57.20 Diverticulitis of large intestine with perforation and abscess without bleeding (principal); E86.0 Dehydration; R00.0 Tachycardia, unspecified; Z79.82 Long term (current) use of aspirin; R10.13 Epigastric pain; R51.9 Headache, unspecified; N40.1 Benign prostatic hyperplasia with lower urinary tract symptoms
CPT/HCPCS: 36415; 74177; 80048; 80053; 81003; 81015; 82150; 83605; 83690; 83735; 84100; 84484; 85025; 85027; 86140; 87040; 87086; 87635; 94761; 99283; 99284; 99285; A9270; J1335; J1885; J2060; J7030; J7120; Q9967

== ENCOUNTER 2022-11-15 12:32 | Outpatient (RCR) | payer OTHER, SELFPAY ==
[2022-11-09] MEDS: ERTAPENEM 1 GM inj IVPB (12:52)
[2022-11-09 12:57] VITALS: BP 114/82; PULSE 79; RESP 16; TEMP 36.4; O2SAT 96
[2022-11-10 12:47] VITALS: BP 131/85; PULSE 80; RESP 16; TEMP 35.9; O2SAT 97
[2022-11-10] MEDS: ERTAPENEM 1 GM inj IVPB (13:09)
[2022-11-11] MEDS: ERTAPENEM 1 GM in 0.9 % SODIUM CHLORIDE 100 ml 100 ML IVPB (12:58)
[2022-11-11 13:03] VITALS: BP 118/77; PULSE 73; RESP 18; TEMP 35.9; O2SAT 98
[2022-11-12 12:39] VITALS: BP 122/82; PULSE 80; RESP 16; TEMP 36.3; O2SAT 8
[2022-11-12] MEDS: ERTAPENEM 1 GM in 0.9 % SODIUM CHLORIDE 100 ml 100 ML IVPB (12:52)
[2022-11-13] MEDS: ERTAPENEM 1 GM in 0.9 % SODIUM CHLORIDE 100 ml 100 ML IVPB (12:48)
[2022-11-13 13:19] VITALS: BP 121/83; PULSE 83; RESP 18; TEMP 36.3; O2SAT 98
[2022-11-14 12:41] VITALS: BP 116/79; PULSE 83; RESP 16; TEMP 36.4; O2SAT 80
[2022-11-14] MEDS: ERTAPENEM 1 GM in 0.9 % SODIUM CHLORIDE 100 ml 100 ML IVPB (12:58)
[2022-11-15] MEDS: ERTAPENEM 1 GM in 0.9 % SODIUM CHLORIDE 100 ml 100 ML IVPB (13:13)
[2022-11-21 07:54] VITALS: BP 124/81; PULSE 94; RESP 16; TEMP 36.6; O2SAT 99
== END 2022-11-15 13:30 | disposition home or self-care (01) ==
LOC: MS OUT 12:32
PROVIDERS: PCP Family Medicine; Referring Provider Family Medicine; Visit Provider Family Medicine
DX: K57.92 Diverticulitis of intestine, part unspecified, without perforation or abscess without bleeding (principal)
CPT/HCPCS: 96365; 99211; J1335

== ENCOUNTER 2023-01-29 11:16 | Outpatient (CLI) | payer OTHER, SELFPAY | END 2023-01-29 11:17 | disposition home or self-care (01) | LOC: OP CLINIC 11:17 | PROVIDERS: PCP Family Medicine; Visit Provider Surgery | DX: Z12.11 Encounter for screening for malignant neoplasm of colon (principal); K63.5 Polyp of colon; K57.30 Diverticulosis of large intestine without perforation or abscess without bleeding; Z86.010 Personal history of colon polyps | CPT/HCPCS: 45385; 88305; 99153; J1200; J2250; J3010 ==